=== PATIENT | male | born 1990 | race Caucasian/White ===

== ENCOUNTER 2019-07-01 17:38 | Emergency (ER) | payer MEDICAID ==
[~2019-07-01] VITALS: Ht 185.4 cm; Wt 110.0 kg
--- NOTE | 2019-07-01 17:47 | NUR ---
Patient ambulated to bed 9. RN evaluating patient at bedside.
[2019-07-01 17:48] VITALS: BP 118/85
--- NOTE | 2019-07-01 17:54 | NUR ---
28 Y/O MALE C/O FEVER, COUGH, AND HEAD PAIN PROVOKED BY COUGH X 6 DAYS. STATES YELLOW SPUTUM WITH PRODUCTIVE COUGH. STATES 10/10 SHARP HEAD PAIN TO FOREHEAD PROVOKED BY COUGH. RR EVEN AND UNLABORED, NO ACCESSORY MUSCLE USE NOTED. DENIES N/V/D. PT SITTING UPRIGHT CALM AND PLEASANT. X1 SIDE RAIL RAISED. VSS. MEDHX: DM ALLEGIES: IBUPROFEN
--- NOTE | 2019-07-01 18:12 | NUR ---
RADIOLOGY AT BEDSIDE.
[2019-07-01 19:00] VITALS: BP 116/88
--- NOTE | 2019-07-01 19:01 | NUR ---
Patient discharged with v/s stable. Written and verbal after care instructions given and explained. Patient alert, oriented and verbalized understanding of instructions. Ambulatory with steady gait. All questions addressed prior to discharge. ID band removed. Patient advised to follow up with PMD. Rx of TRIAMCINOLONE OINTMENT, TYLENOL, AND TESSALON PERLES given. Patient educated on indication of medication including possible reaction and side effects. Opportunity to ask questions provided and answered.
== END 2019-07-01 19:01 | disposition home or self-care (01) ==
LOC: MED 17:38
DX: J06.9 Acute upper respiratory infection, unspecified (principal); E11.9 Type 2 diabetes mellitus without complications; Z88.6 Allergy status to analgesic agent; R21 Rash and other nonspecific skin eruption
CPT/HCPCS: 71045; 99283; Q0092